=== PATIENT | female | born 1960 | race Two or more races ===

== ENCOUNTER 2023-05-17 19:04 | Emergency (ER) | payer MEDICAID, OTHER ==
[~2023-05-17] VITALS: Ht 167.6 cm; Wt 72.3 kg
[2023-05-17 20:07] VITALS: BP 115/79; PULSE 65; RESP 14; TEMP 97.6; O2SAT 98
[2023-05-17] MEDS ORDERED: KETOROLAC TROMETH 30 MG/ML 1ML VIAL IM ONE (21:45)
[2023-05-17] MEDS ORDERED: HYDROcodone-ACET 5/325MG TAB PO ONE (22:00)
[2023-05-17] MEDS ORDERED: NAP500T PO (22:47)
== END 2023-05-17 23:24 | disposition home or self-care (01) ==
LOC: ER 19:04
DX: S92.355A Nondisplaced fracture of fifth metatarsal bone, left foot, initial encounter for closed fracture (principal); S93.492A Sprain of other ligament of left ankle, initial encounter; Z79.899 Other long term (current) drug therapy; X50.1XXA Overexertion from prolonged static or awkward postures, initial encounter; Y93.89 Activity, other specified; Y92.89 Other specified places as the place of occurrence of the external cause; Y99.8 Other external cause status
CPT/HCPCS: 29515; 73610; 73630